=== PATIENT | male | born 1965 | race Hispanic/Latino ===

== ENCOUNTER 2021-05-11 07:25 | Inpatient (IN) | payer BC, SELFPAY ==
[~2021-05-11] VITALS: Ht 180.3 cm; Wt 99.8 kg
[~2021-05-11 07:25] MED LIST: CIPRO500 MG PO; LOSARTAN POTASS25 MG PO; PRAVASTATIN SOD20 MG PO; ULTRAM50 MG PO
[2021-05-11] MEDS ORDERED: ONDANSETRON HCL INJ 2MG/ML 2ML 2 MG/ML VIAL IV STA (07:40)
[2021-05-11] MEDS ORDERED: SODIUM CHLORIDE 0.9% 1000ML 1,000 ML IV STA (07:40)
[2021-05-11] MEDS: ZINC SULFATE 50 MG CAP PO SCH (08:20)
[2021-05-11] MEDS: CEFTRIAXONE 1 GM in SODIUM CHLORIDE 0.9% 100 ML IV SCH (08:20)
[2021-05-11] MEDS: ASCORBIC ACID 500 MG TAB PO SCH ×2 (08:20→17:23)
[2021-05-11] MEDS: DEXAMETHASONE SOD PHOS 10 MG/1 ML VIAL IV SCH (08:20)
[2021-05-11 08:23] LABS: BASOPHILS % 0.3 % (0.0-1.0); EOSINOPHILS % 0.1 % (0.0-6.0); HEMATOCRIT 50.5 % (38.2-49.6); HEMOGLOBIN 17.1 g/dL (14.0-18.0); LYMPHOCYTES # (AUTO) 1.1 (1.0-3.2); LYMPHOCYTES % 15.7 % (18.0-39.1); MEAN CORPUSCULAR HEMOGLOBIN 30.2 pg (28-32); MEAN CORPUSCULAR HGB CONC 33.9 g/dL (31-35); MEAN CORPUSCULAR VOLUME 89.1 fL (81-99); MONOCYTES # (AUTO) 0.5 (0.2-0.8); MONOCYTES % 7.3 % (4.4-11.3); NEUTROPHILS # (AUTO) 5.5 (2.1-6.9); NEUTROPHILS % 75.4 % (38.7-80.0); PLATELET COUNT 226 x10e3/uL (140-360); RED BLOOD COUNT 5.67 x10e6/uL (4.3-5.7); RED CELL DISTRIBUTION WIDTH 12.9 % (11.7-14.4)
[2021-05-11 08:37] LABS: INR 0.89; PROTHROMBIN TIME 12.2 seconds (11.9-14.5)
[2021-05-11 08:38] LABS: PARTIAL THROMBOPLASTIN TIME 30.4 seconds (23.8-35.5)
[2021-05-11 08:48] LABS: ALBUMIN 3.6 g/dL (3.5-5.0); CALCIUM 8.9 mg/dL (8.4-10.2); CREATININE, SERUM 1.13 mg/dL (0.72-1.25)
[2021-05-11 08:57] LABS: CREATINE KINASE MB 2.3 ng/mL (0-5.0)
[2021-05-11] MEDS ORDERED: POTASSIUM CHLORIDE 20 MEQ TAB CR PO NR ×2 (10:00→14:00)
[2021-05-11] MEDS ORDERED: REMDESIVIR 200MG 200 MG IV ONE (10:00)
[2021-05-11 10:32] VITALS: BP 126/84
[2021-05-11] MEDS ORDERED: BENZONATATE 100 MG CAP PO PRN (13:30)
[2021-05-11] MEDS ORDERED: BENZONATATE 100 MG CAP PO ONE (13:35)
[2021-05-11] MEDS ORDERED: LACTATED RINGER'S 1,000 ML INJ ONE (14:00)
[2021-05-11] MEDS: ENOXAPARIN SOD INJ 40 MG/0.4 ML SYR SC SCH (17:23)
[2021-05-11 17:43] VITALS: BP 122/75
[2021-05-11 20:00] VITALS: BP 136/85
[2021-05-11 21:39] VITALS: BP 136/85
[2021-05-12] VITALS (8 sets, daily range): BP systolic 118–131; BP diastolic 71–88
[2021-05-12 06:09] LABS: BASOPHILS % 0.2 % (0.0-1.0); HEMATOCRIT 47.9 % (38.2-49.6); HEMOGLOBIN 16.4 g/dL (14.0-18.0); LYMPHOCYTES # (AUTO) 1.1 (1.0-3.2); LYMPHOCYTES % 16.7 % (18.0-39.1); MEAN CORPUSCULAR HEMOGLOBIN 30.3 pg (28-32); MEAN CORPUSCULAR HGB CONC 34.2 g/dL (31-35); MEAN CORPUSCULAR VOLUME 88.5 fL (81-99); MONOCYTES # (AUTO) 0.5 (0.2-0.8); MONOCYTES % 7.4 % (4.4-11.3); NEUTROPHILS # (AUTO) 4.7 (2.1-6.9); NEUTROPHILS % 73.1 % (38.7-80.0); PLATELET COUNT 244 x10e3/uL (140-360); RED BLOOD COUNT 5.41 x10e6/uL (4.3-5.7); RED CELL DISTRIBUTION WIDTH 12.7 % (11.7-14.4)
[2021-05-12 06:40] LABS: ALBUMIN 3.2 g/dL (3.5-5.0); ALBUMIN/GLOBULIN RATIO 0.9 (0.8-2.0); ANION GAP 16.6 mmol/L (8-16); CALCIUM 8.7 mg/dL (8.4-10.2); CREATININE, SERUM 0.84 mg/dL (0.72-1.25); POTASSIUM 3.6 mmol/L (3.5-5.1)
[2021-05-12 07:28] LABS: MAGNESIUM 2.2 MG/DL (1.3-2.1)
[2021-05-12] MEDS ORDERED: CEFTRIAXONE 1 GM VIAL ONE (08:03)
[2021-05-12] MEDS: CEFTRIAXONE 1 GM in SODIUM CHLORIDE 0.9% 100 ML IV SCH (08:40)
[2021-05-12] MEDS: ZINC SULFATE 50 MG CAP PO SCH (08:40)
[2021-05-12] MEDS: DEXAMETHASONE SOD PHOS 10 MG/1 ML VIAL IV SCH (08:40)
[2021-05-12] MEDS: ASCORBIC ACID 500 MG TAB PO SCH ×2 (08:40→17:05)
[2021-05-12] MEDS: REMDESIVIR 100MG 100 MG in SODIUM CHLORIDE 0.9% 100 ML IV SCH (13:24)
[2021-05-12] MEDS: ENOXAPARIN SOD INJ 40 MG/0.4 ML SYR SC SCH (17:05)
[2021-05-13] VITALS (7 sets, daily range): BP systolic 115–134; BP diastolic 71–84
[2021-05-13 05:43] LABS: ALBUMIN 3.1 g/dL (3.5-5.0); BILIRUBIN,DIRECT 0.3 mg/dL (0.0-0.5)
[2021-05-13] MEDS: ZINC SULFATE 50 MG CAP PO SCH (07:56)
[2021-05-13] MEDS: ASCORBIC ACID 500 MG TAB PO SCH ×2 (07:56→16:33)
[2021-05-13] MEDS: DEXAMETHASONE SOD PHOS 10 MG/1 ML VIAL IV SCH (07:56)
[2021-05-13] MEDS ORDERED: GUAIFENESIN/CODEINE 5 ML LIQD PO PRN (11:00)
[2021-05-13] MEDS: REMDESIVIR 100MG 100 MG in SODIUM CHLORIDE 0.9% 100 ML IV SCH (12:59)
[2021-05-13] MEDS: ENOXAPARIN SOD INJ 40 MG/0.4 ML SYR SC SCH (16:33)
[2021-05-14] VITALS (9 sets, daily range): BP systolic 115–136; BP diastolic 76–86
[2021-05-14] MEDS: ZINC SULFATE 50 MG CAP PO SCH (08:53)
[2021-05-14] MEDS: ASCORBIC ACID 500 MG TAB PO SCH ×2 (08:53→17:18)
[2021-05-14] MEDS: DEXAMETHASONE SOD PHOS 10 MG/1 ML VIAL IV SCH (08:53)
[2021-05-14] MEDS: REMDESIVIR 100MG 100 MG in SODIUM CHLORIDE 0.9% 100 ML IV SCH (13:56)
[2021-05-14] MEDS: ENOXAPARIN SOD INJ 40 MG/0.4 ML SYR SC SCH (17:18)
[2021-05-15] VITALS (7 sets, daily range): BP systolic 111–138; BP diastolic 18–94
[2021-05-15] MEDS: DEXAMETHASONE SOD PHOS 10 MG/1 ML VIAL IV SCH (08:31)
[2021-05-15] MEDS: ZINC SULFATE 50 MG CAP PO SCH (08:31)
[2021-05-15] MEDS: ASCORBIC ACID 500 MG TAB PO SCH ×2 (08:31→16:41)
[2021-05-15 12:21] LABS: BASOPHILS # (AUTO) 0.1 (0.0-0.1); BASOPHILS % 0.4 % (0.0-1.0); HEMATOCRIT 52.5 % (38.2-49.6); HEMOGLOBIN 17.9 g/dL (14.0-18.0); LYMPHOCYTES # (AUTO) 1.7 (1.0-3.2); LYMPHOCYTES % 8.3 % (18.0-39.1); MEAN CORPUSCULAR HEMOGLOBIN 29.9 pg (28-32); MEAN CORPUSCULAR HGB CONC 34.1 g/dL (31-35); MEAN CORPUSCULAR VOLUME 87.6 fL (81-99); MONOCYTES # (AUTO) 0.9 (0.2-0.8); MONOCYTES % 4.2 % (4.4-11.3); NEUTROPHILS # (AUTO) 16.1 (2.1-6.9); NEUTROPHILS % 79.5 % (38.7-80.0); PLATELET COUNT 479 x10e3/uL (140-360); RED BLOOD COUNT 5.99 x10e6/uL (4.3-5.7); RED CELL DISTRIBUTION WIDTH 12.4 % (11.7-14.4)
[2021-05-15 13:01] LABS: ANION GAP 15.2 mmol/L (8-16); CALCIUM 8.6 mg/dL (8.4-10.2); CREATININE, SERUM 1.07 mg/dL (0.72-1.25); POTASSIUM 3.2 mmol/L (3.5-5.1)
[2021-05-15] MEDS ORDERED: REMDESIVIR 100MG 100 MG IV ONE (14:08)
[2021-05-15] MEDS: REMDESIVIR 100MG 100 MG in SODIUM CHLORIDE 0.9% 100 ML IV SCH (14:20)
[2021-05-15] MEDS ORDERED: POTASSIUM CHLORIDE 10MEQ EA PO ONE (16:00)
[2021-05-15] MEDS: ENOXAPARIN SOD INJ 40 MG/0.4 ML SYR SC SCH (16:41)
[2021-05-16] VITALS (7 sets, daily range): BP systolic 116–138; BP diastolic 87–94
[2021-05-16 05:46] LABS: BASOPHILS # (AUTO) 0.1 (0.0-0.1); BASOPHILS % 0.3 % (0.0-1.0); EOSINOPHILS % 0.1 % (0.0-6.0); HEMOGLOBIN 16.3 g/dL (14.0-18.0); LYMPHOCYTES # (AUTO) 1.7 (1.0-3.2); LYMPHOCYTES % 8.6 % (18.0-39.1); MEAN CORPUSCULAR HEMOGLOBIN 30.2 pg (28-32); MEAN CORPUSCULAR HGB CONC 34.7 g/dL (31-35); NEUTROPHILS # (AUTO) 15.3 (2.1-6.9); NEUTROPHILS % 77.1 % (38.7-80.0); PLATELET COUNT 393 x10e3/uL (140-360); RED CELL DISTRIBUTION WIDTH 12.3 % (11.7-14.4)
[2021-05-16 06:18] LABS: ANION GAP 13.9 mmol/L (8-16); CALCIUM 8.3 mg/dL (8.4-10.2); CREATININE, SERUM 1.03 mg/dL (0.72-1.25); POTASSIUM 3.9 mmol/L (3.5-5.1)
[2021-05-16] MEDS: DEXAMETHASONE SOD PHOS 10 MG/1 ML VIAL IV SCH (08:16)
[2021-05-16] MEDS: ASCORBIC ACID 500 MG TAB PO SCH ×2 (08:16→16:24)
[2021-05-16] MEDS: ZINC SULFATE 50 MG CAP PO SCH (08:16)
[2021-05-16] MEDS ORDERED: DECADRON4 M1 PO (12:57)
[2021-05-16] MEDS ORDERED: ASPIRIN EC81 MG PO (12:58)
[2021-05-16] MEDS: ENOXAPARIN SOD INJ 40 MG/0.4 ML SYR SC SCH (16:24)
== END 2021-05-16 17:08 | disposition home or self-care (01) | DRG 177 ==
LOC: ER 07:30 → ERHOLD 07:50 → IMCU 10:37
PROVIDERS: ADMIT Internal Medicine; ATTEND Internal Medicine
PROC: 8E0ZXY6 Isolation (ICD-10-PCS; 2021-05-11)
PROC: XW043E5 Introduction of Remdesivir Anti-infective into Central Vein, Percutaneous Approach, New Technology Group 5 (ICD-10-PCS; principal; 2021-05-12)
DX: U07.1 COVID-19 (principal); J12.82 Pneumonia due to coronavirus disease 2019; M62.82 Rhabdomyolysis; B19.9 Unspecified viral hepatitis without hepatic coma; N17.9 Acute kidney failure, unspecified; E87.6 Hypokalemia; Z85.528 Personal history of other malignant neoplasm of kidney; R09.02 Hypoxemia
CPT/HCPCS: 36415; 71045; 80048; 80053; 80076; 82550; 82553; 83735; 83880; 84484; 85025; 85610; 85730; 87040; 93005; 99284; J0456; J0696; J1100; J1650; J2405; J7030; J7050; J7121; U0002